=== PATIENT | female | born 1955 | race Caucasian/White ===

== ENCOUNTER 2021-09-30 09:25 | Outpatient (CLI) | payer OTHER ==
[~2021-09-30 09:25] MED LIST: OMEGA-31000 MG; TRICOR145 MG PO
== END 2021-09-30 15:59 | disposition home or self-care (01) ==
LOC: TOM 09:25
PROVIDERS: ATTEND Internal Medicine Gastroenterology
DX: A08.8 Other specified intestinal infections (principal)

== ENCOUNTER 2025-01-26 08:11 | Outpatient (CLI) | payer OTHER | END 2025-01-26 08:21 | disposition home or self-care (01) | LOC: TOM 08:11 | PROVIDERS: ATTEND Internal Medicine Gastroenterology | DX: R19.5 Other fecal abnormalities (principal) ==